=== PATIENT | female | born 1935 | race African-American/Black ===

== ENCOUNTER 2021-05-29 13:15 | Emergency (ER) | payer OTHER ==
[2021-05-29 13:59] VITALS: BP 154/54; PULSE 77; TEMP 98.4; BMI 28.4
[2021-05-29] MEDS ORDERED: ACETAMINOPHEN 325 MG TABLET (FP) PO ONE (15:53)
[2021-05-29] MEDS ORDERED: CYCLOBENZAPRINE HCL 10 MG TABLET (FP) PO ONE (15:53)
[2021-05-29] MEDS ORDERED: ACETAMINOPHEN 500 MG TABLET (FP) ONE (16:22)
[2021-05-29] MEDS ORDERED: CYCLOBENZAPRINE HCL 10 MG TABLET (FP) ONE (16:23)
[2021-05-29 17:15] LABS: EOS % 1.9 % (0-4.5); HEMATOCRIT 36.3 % (32.4-45.2); LYMPH % 33.2 % (8-40); MCH 28.2 pg (25.7-33.7); MCHC 33.1 g/dl (32.0-36.0); MEAN CELL VOLUME 85.2 fl (80-96); MEAN PLT VOLUME 8.8 fl (7.5-11.1); MONO % 6.5 % (3.8-10.2); NEUT % 56.4 % (42.8-82.8); PLATELET COUNT 257 10^3/uL (134-434); RBC 4.27 M/mm3 (3.60-5.2); RDW 14.4 % (11.6-15.6); WHITE BLOOD COUNT 7.5 K/mm3 (4.0-10.8)
[2021-05-29 17:29] LABS: ALBUMIN 3.6 g/dl (3.4-5.0); ALK PHOS 113 U/L (45-117); ANION GAP 10 MMOL/L (8-16); BILIRUBIN,TOTAL 0.4 mg/dl (0.2-1); CALCIUM 9.1 mg/dl (8.5-10); CHLORIDE 103 mmol/L (98-107); CO2 24 mmol/L (21-32); CREATININE 1.2 mg/dl (0.55-1.3); GLUCOSE,RANDOM 146 mg/dl (74-106); SGOT/AST 22 U/L (15-37); SGPT/ALT 17 U/L (13-61); SODIUM 137 mmol/L (136-145); TOT PROT 6.5 g/dl (6.4-8.2)
== END 2021-05-29 18:47 | disposition home or self-care (01) ==
LOC: FER 13:15
DX: M54.50 Low back pain, unspecified (principal)
CPT/HCPCS: 36415; 72131-TC; 80053; 81003; 82550; 84484; 85025; 87086; 93005; 99284-25

== ENCOUNTER 2021-05-30 12:11 | Emergency (ER) | payer OTHER ==
[2021-05-30 12:25] VITALS: BP 158/84; PULSE 86; TEMP 99.5; BMI 28.4
[2021-05-30] MEDS ORDERED: ACETAMINOPHEN 325 MG TABLET (FP) ONE (12:52)
[2021-05-30] MEDS ORDERED: ACETAMINOPHEN 325 MG TABLET (FP) PO ONE (13:05)
== END 2021-05-30 14:21 | disposition home or self-care (01) ==
LOC: FER 12:11
DX: M79.604 Pain in right leg (principal)
CPT/HCPCS: 71045-TC-FY; 71101-TC-RT-FY; 73523-TC-FY; 73590-TC-RT-FY; 99284-25

== ENCOUNTER 2023-01-12 10:04 | Emergency (ER) | payer OTHER ==
[2023-01-12 10:16] VITALS: BMI 28.3
[2023-01-12 12:02] LABS: PH,URINE 6.5 (5.0-8.0); URINE APPEARANCE CLEAR; URINE BILIRUBIN NEGATIVE (NEGATIVE); URINE COLOR YELLOW; URINE GLUCOSE (UA) NEGATIVE (NEGATIVE); URINE KETONE NEGATIVE (NEGATIVE); URINE LEUK ESTERASE NEGATIVE (NEGATIVE); URINE NITRITE NEGATIVE (NEGATIVE); URINE PROTEIN NEGATIVE (NEGATIVE); URINE UROBILINOGEN 0.2 mg/dL (0.2-1.0)
[2023-01-12 13:48] VITALS: BP 149/61; PULSE 65; RESP 20; TEMP 97.8
== END 2023-01-12 13:51 | disposition home or self-care (01) ==
LOC: JER 10:04
DX: K62.89 Other specified diseases of anus and rectum (principal); R30.0 Dysuria
CPT/HCPCS: 74018-TC-FY; 81003; 87086; 99284-25

== ENCOUNTER 2023-05-17 11:39 | Emergency (ER) | payer OTHER ==
[2023-05-17 11:50] VITALS: BP 177/74; PULSE 83; RESP 20; TEMP 98.6; BMI 29.0
[2023-05-17 12:57] LABS: EPITHELIAL CELLS FEW /hpf
[2023-05-17 12:58] LABS: URINE MUCUS SMALL
== END 2023-05-17 13:28 | disposition home or self-care (01) ==
LOC: FER 11:39
DX: M54.50 Low back pain, unspecified (principal); G89.29 Other chronic pain; T50.905A Adverse effect of unspecified drugs, medicaments and biological substances, initial encounter
CPT/HCPCS: 81003; 81015; 82272; 87086; 99283-25